=== PATIENT | female | born 1990 | race Caucasian/White ===

== ENCOUNTER → 2016-11-08 | Outpatient (CLI) | payer OTHER ==
[~2016-11-08] MED LIST: LEVOTHROID(SYN75 MCG PO; MOTRIN800 MG PO; NIFEDIPINE ER30 MG PO; OSCAL + D500 MG PO; PRENATAL 1+1)(P1 TAB PO
== END | disposition disaster alternative care site (69) ==
LOC: GRAD 13:40
DX: Z34.82 Encounter for supervision of other normal pregnancy, second trimester (principal); Z3A.20 20 weeks gestation of pregnancy

== ENCOUNTER 2017-03-05 10:10 | Inpatient (IN) | payer OTHER ==
[~2017-03-05] VITALS: Ht 175.3 cm; Wt 101.0 kg
--- NOTE | ~2017-03-05 | OR ---
PATIENT'S NAME: JENNIFER STEWART [facility] AGE: 26 Y [address] ROOM: [place] [address] LOCATION: GOBS ADMIT DATE: 03/05/2017 OR/Procedure Report DISCHARGE DATE: FAMILY PHYSICIAN: Bella Hennessy MD ATTENDING PHYSICIAN: Bella Hennessy SURGEON: Bella Hennessy MD TANNERY GUMMER: DATE OF PROCEDURE: 03/05/2017 Delivery Note TIME: 1746 hours. This 26-year-old, G4, P2 female, under no anesthesia, delivered a viable female infant, weighing 6 pounds 4 ounces, with score of 8 and 9 at one and five minutes. Mom was seen in clinic for routine visit today. She had PIH since 36 weeks. Today, blood pressures x3 were in the 150s with diastolics in the 90s to 100s even after resting. Her urine dip was negative for protein and CBC and CMS were unremarkable. Since her pressures were going up and not going down with rest, we decided to go ahead with induction of labor since she had a favorable cervix. Mom was brought in and Cytotec was placed, and 4 hours later, Pitocin started. She went pretty fast to complete, and just with 1 push, delivered the head. Delivery was via spontaneous vaginal delivery to a sterile field. There was no nuchal cord. Baby was bulb suctioned at delivery. Baby was stimulated, has a nice cry. Cord was then doubly clamped and then cut by dad and baby was handed to mom, then the waiting nurse. Cord pH and cord blood were sent for analysis. The intact placenta with 3-vessel cord delivered spontaneously shortly after delivery of the baby. The patient's uterus was massaged and Pitocin was opened up and given through a bag of IV fluids. Her uterus clamped down nicely. The patient's vagina, cervix, and perineum were explored and she had no tear and no repair necessary. Estimated blood loss was 300 mL. Fluid is clear throughout. Sponge counts and needle counts were correct. Mom and baby are both doing well and in stable condition. BELLA HENNESSY MD AJP/modl PATIENT'S NAME: JENNIFER STEWART [facility] AGE: 26 Y [address] ROOM: [place] [address] LOCATION: [facility] ADMIT DATE: 03/05/2017 OR/Procedure Report DISCHARGE DATE: FAMILY PHYSICIAN: Bella Hennessy MD ATTENDING PHYSICIAN: Bella Hennessy /[id number] d: 03/06/17 0051 t: 03/06/17 1221, OPERATIVE SUMMARY
[~2017-03-05 10:10] MED LIST changes: -MOTRIN800 MG PO; -NIFEDIPINE ER30 MG PO
[2017-03-05 11:38] LABS: BASOPHIL % 0.3 %; EOSINOPHIL % 0.3 %; HEMOGLOBIN 11.5 g/dL (11.0-15.0); IMMATURE GRANULOCYTE # 0.3 K/uL (0.0-0.3); IMMATURE GRANULOCYTE % 2.2 %; LYMPHOCYTE # 1.9 K/uL (0.8-4.0); LYMPHOCYTE % 15.8 %; MCH 29.8 pg (27.0-34.0); MCHC 33.8 gm/dL (32.0-36.5); MCV 88.1 fl (83.0-98.0); MONOCYTE # 0.6 K/uL (0.0-1.0); MONOCYTE % 4.7 %; MPV 11.2 fl (9.4-12.4); NEUTROPHIL # (ANC) 9.1 K/uL (1.8-7.8); NEUTROPHIL % 76.7 %; NRBC % 0 /100WBC (0-0.00); PLATELET COUNT 219 K/uL (150-450); RBC 3.86 M/uL (3.50-5.00); RDW-CV 13.6 % (11.9-14.6); WBC 11.9 K/uL (4.0-11.0)
[2017-03-05 13:25] LABS: ALBUMIN 2.4 gm/dL (3.5-5.0); ALK PHOS 98 IU/L (33-138); ALT 16 IU/L (12-78); ANION GAP 14.7 (10.0-19.0); AST 13 IU/L (10-40); BLOOD UREA NITROGEN 8 mg/dL (6-24); CALCIUM 8.5 mg/dL (8.5-10.5); CHLORIDE 109 mMol/L (96-110); CO2 21 mMol/L (22-32); CREATININE 0.6 mg/dL (0.5-1.1); POTASSIUM 3.7 mMol/L (3.7-5.1); SODIUM 141 mMol/L (135-145); TOTAL BILIRUBIN 0.3 mg/dL (0.0-1.5); TOTAL PROTEIN 6.6 g/dL (6.0-8.4)
[2017-03-05 18:36] LABS: BICARBONATE 21.6 mmol/L (18.0-23.0); PCO2 47 mmHg (35-45); PO2 19 mmHg (80-90)
[2017-03-06 04:26] LABS: BASOPHIL % 0.3 %; EOSINOPHIL # 0.1 K/uL (0.0-0.5); EOSINOPHIL % 0.4 %; HEMATOCRIT 32.1 % (33.0-46.0); HEMOGLOBIN 10.8 g/dL (11.0-15.0); IMMATURE GRANULOCYTE # 0.1 K/uL (0.0-0.3); IMMATURE GRANULOCYTE % 0.8 %; LYMPHOCYTE # 2.4 K/uL (0.8-4.0); LYMPHOCYTE % 15.7 %; MCH 29.4 pg (27.0-34.0); MCHC 33.6 gm/dL (32.0-36.5); MCV 87.5 fl (83.0-98.0); MONOCYTE # 1.1 K/uL (0.0-1.0); MONOCYTE % 7.1 %; NEUTROPHIL # (ANC) 11.4 K/uL (1.8-7.8); NEUTROPHIL % 75.7 %; NRBC % 0 /100WBC (0-0.00); PLATELET COUNT 187 K/uL (150-450); RBC 3.67 M/uL (3.50-5.00); RDW-CV 13.5 % (11.9-14.6)
--- NOTE | 2017-03-06 04:50 | NUR ---
VSS, FUNDUS FIRM, AY UMBILICUS, SMALL FLOW. PERINEUM INTACT. PT UP AD DENNIS IN ROOM. CERTIFICATE AT BEDSIDE. VIDEOS DONE. INDEPENDENT WITH CARES. NO PAIN MEDS TAKEN THIS SHIFT. PT WOULD LIKE TO GO HOME LATER TODAY.
[2017-03-07] MEDS ORDERED: MOTRIN800 MG PO (12:17)
[2017-03-07] MEDS ORDERED: NIFEDIPINE ER30 MG PO (12:20)
== END 2017-03-07 13:15 | disposition disaster alternative care site (69) | DRG 775 ==
LOC: GOBM 10:10 → GOBS 10:10 → GOBM 10:11 → GOBS 16:21 → GOBM 03-22 09:49
PROVIDERS: ADMIT Family Medicine
PROC: 3E033VJ Introduction of Other Hormone into Peripheral Vein, Percutaneous Approach (ICD-10-PCS; principal; 2017-03-05)
PROC: 10E0XZZ Delivery of Products of Conception, External Approach (ICD-10-PCS; principal; 2017-03-05)
DX: O13.4 Gestational [pregnancy-induced] hypertension without significant proteinuria, complicating childbirth (principal); Z37.0 Single live birth; Z3A.37 37 weeks gestation of pregnancy
CPT/HCPCS: J2001; J2590; J3010; J7120